=== PATIENT | female | born 1960 | race Caucasian/White ===

== ENCOUNTER → 2020-01-29 17:26 | Outpatient (CLI) | payer BC, SELFPAY ==
--- NOTE | ~2020-01-29 | MM_ITS ---
EXAMINATION: MM screening jorge l BI w ramana HISTORY: Screening mammogram, family history of breast cancer in her sister. TECHNIQUE: Craniocaudal and mediolateral oblique 3-D tomosynthesis images were obtained and synthetic 2-D images were generated. CAD analysis was submitted and interpreted. COMPARISON: 08/04/2006, 06/29/2005, 06/17/2005 BREAST PARENCHYMAL COMPOSITION: There are scattered areas of fibroglandular density. FINDINGS: RIGHT BREAST: There is no evidence of suspicious mass, calcification, or architectural distortion to suggest malignancy. There has been no significant interval change. LEFT BREAST: There is an ill-defined mass in the anterior/middle third of the upper outer quadrant of the breast with associated calcification. In addition, there are indeterminate calcifications in the posterior third of the lower-outer breast. IMPRESSION: 1. Left breast mass with associated calcifications and indeterminate left breast calcifications. 2. Additional mammographic views and possible breast ultrasound are recommended. BI-RADS Category 0: Incomplete: Needs additional imaging evaluation. Reviewed, dictated and finalized at location A. DELIVERY VEHICLE TEAM TECHNICIAN IMPRESSION: 1. Left breast mass with associated calcifications and indeterminate left breas t calcifications. 2. Additional mammographic views and possible breast ultrasound are recommended . BI-RADS Category 0: Incomplete: Needs additional imaging evaluation.
== END ==
PROVIDERS: PCP Family Medicine; Visit Provider Family Medicine
DX: Z12.31 Encounter for screening mammogram for malignant neoplasm of breast (principal); R92.8 Other abnormal and inconclusive findings on diagnostic imaging of breast
CPT/HCPCS: 77063; 77067

== ENCOUNTER → 2020-02-25 08:11 | Outpatient (CLI) | payer BC, SELFPAY ==
--- NOTE | ~2020-02-25 | MMUS_ITS ---
EXAMINATION: MM diagnostic mammo unilat LT, US breast LT limited HISTORY: Left breast mass and indeterminate left breast calcifications on screening mammogram TECHNIQUE: Additional 3-D tomosynthesis images of the left breast were performed and synthetic 2-D im ages were generated. Magnification views are also obtained. CAD analysis was submitted and interprete d. High resolution limited left breast ultrasound was performed. COMPARISON: 01/29/2020, 08/04/2006, 06/29/2005 FINDINGS: MAMMOGRAPHIC FINDINGS: There is an approximately 2.9 cm irregular high density mass with indistinct margins at the 1:00 loca tion in the upper outer quadrant of the breast with associated pleomorphic calcification. In addition , there are grouped punctate and fine pleomorphic calcifications in the posterior third of the lower- outer quadrant of the breast 7 cm from the nipple at the 4:00 location. ULTRASOUND: There is a 2.3 x 1.4 cm irregular hypoechoic mass with spiculated and indistinct margins, posterior a coustic shadowing, internal vascularity, and associated calcifications at the 12:00 location 5 cm fro m the nipple. IMPRESSION: 1. Suspicious left breast mass and grouped calcifications. 2. Ultrasound-guided biopsy of the mass and stereotactic biopsy of calcifications are recommended. BI-RADS category 5, highly suggestive of malignancy. Reviewed, dictated and finalized at location A. TENDER IMPRESSION: 1. Suspicious left breast mass and grouped calcifications. 2. Ultrasound-guided biopsy of the mass and stereotactic biopsy of calcificatio ns are recommended. BI-RADS category 5, highly suggestive of malignancy.
== END ==
PROVIDERS: PCP Family Medicine; Visit Provider Physician Assistant
DX: N63.25 Unspecified lump in the left breast, overlapping quadrants (principal); R92.1 Mammographic calcification found on diagnostic imaging of breast
CPT/HCPCS: 76642; 77065

== ENCOUNTER 2020-09-02 07:19 | Outpatient (CLI) | payer BC, SELFPAY ==
[2020-09-02 08:35] LABS: Hemoglobin A1C 6.3 % (<5.7)
== END 2020-09-02 07:20 | disposition home or self-care (01) ==
PROVIDERS: PCP Family Medicine; Visit Provider Physician Assistant
DX: E11.9 Type 2 diabetes mellitus without complications (principal)
CPT/HCPCS: 36415; 83036

== ENCOUNTER 2021-01-19 07:19 | Outpatient (CLI) | payer BC, SELFPAY ==
[2021-01-19 08:04] LABS: Alanine Aminotransferase 22 U/L (4-35); Albumin Level 4.7 g/dL (3.5-5.1); Alkaline Phosphatase 81 U/L (38-126); Anion Gap 9 mmol/L (8-16); Aspartate Amino Transferase 25 U/L (14-36); Bilirubin,Total 0.7 mg/dL (0.2-1.3); Blood Urea Nitrogen 18 mg/dL (7-17); Calcium 9.5 mg/dL (8.4-10.2); Carbon Dioxide 30 mmol/L (22-30); Chloride 100 mmol/L (98-107); Estimated Glomerular Filt Rate > 60; Glucose 112 mg/dL (65-110); Potassium 4.5 mmol/L (3.4-5.0); Sodium 139 mmol/L (137-145)
== END 2021-01-19 07:20 | disposition home or self-care (01) ==
PROVIDERS: PCP Family Medicine; Visit Provider Family Medicine
DX: E11.9 Type 2 diabetes mellitus without complications (principal); I10 Essential (primary) hypertension
CPT/HCPCS: 36415; 80053; 83036

== ENCOUNTER 2021-09-30 07:32 | Outpatient (CLI) | payer BC, SELFPAY ==
[2021-09-30 08:13] LABS: Anion Gap 10 mmol/L (8-16); Blood Urea Nitrogen 19 mg/dL (7-17); Calcium 9.2 mg/dL (8.4-10.2); Carbon Dioxide 27 mmol/L (22-30); Chloride 101 mmol/L (98-107); Cholesterol 253 mg/dL (0-200); Estimated Glomerular Filt Rate > 60; Glucose 120 mg/dL (65-110); HDL Direct 55 mg/dL; Potassium 4.1 mmol/L (3.4-5.0); Sodium 138 mmol/L (137-145); Triglycerides 165 mg/dL (<150)
[2021-09-30 08:24] LABS: LDL Cholesterol Direct 125 mg/dL
[2021-09-30 08:40] LABS: Free T4 Free Thyroxine 0.81 ng/mL (0.78-2.19)
[2021-09-30 10:52] LABS: Creatinine Urine 67.7 mg/dL
[2021-09-30 10:55] LABS: MALB Creatinine Ratio 28.7 mg/g (0-30); Microalbumin Urine Random 19.4 mg/L (0-16.7)
== END 2021-09-30 07:33 | disposition home or self-care (01) ==
PROVIDERS: PCP Family Medicine; Visit Provider Nurse Practitioner Family
DX: E11.9 Type 2 diabetes mellitus without complications (principal); E66.9 Obesity, unspecified; I10 Essential (primary) hypertension
CPT/HCPCS: 36415; 80048; 80061; 82043; 84439; 84443

== ENCOUNTER 2021-10-06 13:00 | Outpatient (RCR) | payer BC, SELFPAY ==
[2021-08-31 08:04] VITALS: BMI 40.5
[2021-08-31 08:09] VITALS: BMI 40.5
== END 2021-10-20 14:55 | disposition home or self-care (01) ==
LOC: ANHDMC 13:00
PROVIDERS: PCP Family Medicine; Visit Provider Internal Medicine Endocrinology, Diabetes & Metabolism
DX: E11.9 Type 2 diabetes mellitus without complications (principal); Z71.3 Dietary counseling and surveillance; Z71.89 Other specified counseling
CPT/HCPCS: 97802; G0108

== ENCOUNTER 2022-11-24 01:18 | Day surgery (SDC) | payer BC, SELFPAY ==
[2022-11-16 08:45] VITALS: BMI 40.7
[2022-11-24 07:24] VITALS: BP 119/77; PULSE 96; RESP 20; TEMP 36.4; O2SAT 100
[2022-11-24] MEDS: LACTATED RINGERS 1,000 ML 150 ML IV CONT (07:37)
[2022-11-24 07:43] LABS: Glucose Point of Care 119 mg/dl (65-105)
--- NOTE | 2022-11-24 07:50 | WPDANESEPPF ---
Anes - Initial Pre Proc Eval Procedure: Operation Date: 11/24/22 08:30 Proposed Procedures p Colonoscopy - Ho Wagoner MD Date/Time: 11/24/22 07:50 Surgeon: Ho Wagoner MD Pre Op Diagnosis: neoplasm screening Patient Data Age: 61 Gender: F Height: 1.7 m Weight: 115.4 kg Last Vital Signs Temp 36.4 C L 11/24/22 07:24 Pulse 96 11/24/22 07:24 Resp 20 11/24/22 07:24 BP 119/77 11/24/22 07:24 Pulse Ox 100 11/24/22 07:24 O2 Del Method Room Air 11/24/22 07:24 Allergies Allergy/AdvReac Type Severity Reaction Status Date / Time shellfish derived Allergy Severe Hives, Verified 11/24/22 07:21 throat swelling Penicillins Allergy Unknown Other Verified 11/24/22 07:21 Sulfa (Sulfonamide AdvReac Unknown Nausea Verified 11/24/22 07:21 Antibiotics) Home Medications Medication Instructions Recorded Confirmed Type blood sugar diagnostic (OneTouch #100 ea 07/05/20 11/22/22 Rx Ultra Blue Test Strip) blood-glucose meter (OneTouch #1 ea 07/05/20 11/22/22 Rx Ultra2 Meter kit) lancets 33 gauge (OneTouch Delica #100 ea 07/05/20 11/22/22 Rx Lancets) anastrozole 1 mg tablet 1 mg PO DAILY 01/05/21 11/22/22 History calcium carbonate 600 mg-vitamin 1 tablet PO DAILY 01/05/21 11/22/22 History D3 10 mcg (400 unit) tablet wjcblqlh-bbl-xhvwx ac 400 1 tablet PO DAILY 01/05/21 11/22/22 History mcg-calcium carb 500 mg-vit K1 20 mcg tablet (Women's 50 Plus Multivitamin) venlafaxine 37.5 mg 37.5 mg PO DAILY 01/05/21 11/22/22 History capsule,extended release 24 hr vitamin E (dl, acetate) 180 mg 400 unit PO DAILY 01/05/21 11/22/22 History (400 unit) capsule albuterol sulfate 90 mcg/actuation 1 puff inhalation Q4H PRN 04/04/21 11/22/22 Rx aerosol inhaler (Ventolin HFA) shortness of breath or wheezing #8.5 grams lisinopril 5 mg tablet See Rx Instructions .Route 05/11/22 11/22/22 Rx .COMPLEX #90 tabs rosuvastatin 20 mg tablet (Crestor) 20 mg PO DAILY 90 days #90 tabs 07/13/22 11/22/22 Rx fluticasone propionate 100 1 inh inhalation Q12H #60 ea 09/10/22 11/22/22 Rx mcg/actuation blister powder for inhalation (Flovent Diskus) metformin 1,000 mg tablet 1,000 mg PO BID #180 tabs 10/02/22 11/22/22 Rx montelukast 10 mg tablet 10 mg PO DAILY #90 tabs 10/02/22 11/22/22 Rx acetaminophen 500 mg capsule 500 mg PO Q6H PRN Pain 11/16/22 11/22/22 History diphenhydramine 25 1 tablet PO HS PRN Insomnia 11/16/22 11/22/22 History mg-acetaminophen 500 mg tablet (Tylenol PM Extra Strength) magnesium 1 tablet PO DAILY 11/16/22 11/22/22 History semaglutide 2 mg/dose (8 mg/3 mL) 2 mg (0.75 mL) subcut WEEKLY 90 11/22/22 11/22/22 Rx subcutaneous pen injector (Ozempic) days #9 mL Laboratory Tests 11/24/22 07:41 POC Capillary Glucose 119 H mg/dl (65-105) Patient hx anesthesia problems: none Family hx anesthesia problems: none Results Review: All pre-operative results and documents have been reviewed as part of the pre-operative evaluation. [facility] Past Medical History Medical History Actinic keratoses Asthma Body mass index (BMI) 35 or more (11/29/16) Breast cancer 2020 Essential (primary) hypertension Essential hypertension Fatty liver disease, nonalcoholic Mixed hyperlipidemia LAMONTE on CPAP Pre-diabetes Type 2 diabetes mellitus Vitamin D deficiency, unspecified Surgical History Surgical History H/O bilateral mastectomy 09/2020 History of breast reconstruction 02/2021 Family History Family History Sibling Asthma Diabetes mellitus Father Diabetes mellitus ALS (amyotrophic lateral sclerosis) Mother Heart disease Family history of kidney disease Other Family history of coronary artery disease Family history of malignant neoplasm
--- NOTE | 2022-11-24 08:11 | PM.HPGS ---
History of Present Illness History of Present Illness Consent: Risks, benefits, and alternatives have been discussed and questions answered. Patient agrees to proceed with procedure. Chief complaint: neoplasm screening Narrative: Zonia Dodge is a 61 year old female here for first screening colonoscopy Review of Systems Constitutional: Constitutional: Denies headache(s) and Denies weakness Eyes: Eyes: Denies blurry vision ENT: Reports Normal hearing present, Denies headache(s) and Denies neck pain Cardiovascular: Cardiovascular: Denies chest pain and Denies dyspnea Respiratory: Respiratory: Denies dyspnea Gastrointestinal: Gastrointestinal: Reports no additional gastrointestinal complaints Genitourinary: Genitourinary: Denies dysuria Musculoskeletal: Musculoskeletal: Denies neck pain Integumentary/Breasts: Skin/Breast: Denies dry skin Neurologic: Reports Normal hearing present, Denies headache(s) and Denies weakness Psychiatric: Psychiatric: Denies anxiety Endocrine: Endocrine: Denies change in body appearance Hematologic/Lymphatic: Hematologic/Lymphatic: Denies easy bleeding Allergic/Immunologic: Allergic/Immunologic: Denies urticaria [facility] Past Medical History Medical History (Updated 11/24/22 @ 08:12 by Ho Wagoner MD) Actinic keratoses Asthma Body mass index (BMI) 35 or more (11/29/16) Breast cancer 2020 Colon cancer screening Essential (primary) hypertension Essential hypertension Fatty liver disease, nonalcoholic Mixed hyperlipidemia LAMONTE on CPAP Pre-diabetes Type 2 diabetes mellitus Vitamin D deficiency, unspecified Surgical History Surgical History H/O bilateral mastectomy 09/2020 History of breast reconstruction 02/2021 Family History Family History Sibling Asthma Diabetes mellitus Father Diabetes mellitus ALS (amyotrophic lateral sclerosis) Mother Heart disease Family history of kidney disease Other Family history of coronary artery disease Family history of malignant neoplasm of breast in first degree relative Hypertension Social History Social History (Updated 11/22/22 @ 08:08 by Vinita Pinto [facility]) Smoking status: Never smoker Alcohol intake: current Alcohol use details: rarely Substance use: never Substance use type: does not use Lack of Transportation: No Lack of Food: Never True Current Housing: I Have Housing Concerned About Future Housing: No Difficulty Paying Gas/Electric Bills: No Difficulty Paying for Meds: No Currently Unemployed: No Education: Bachelor's Degree Difficulty w/ Childcare or Family Care: No Living arrangements: with family Spiritual care concerns: No Meds Home Medications and Allergies Home Medications Medication Instructions Recorded Confirmed Type blood sugar diagnostic (OneTouch #100 ea 07/05/20 11/22/22 Rx Ultra Blue Test Strip) blood-glucose meter (OneTouch #1 ea 07/05/20 11/22/22 Rx Ultra2 Meter kit) lancets 33 gauge (OneTouch Delica #100 ea 07/05/20 11/22/22 Rx Lancets) anastrozole 1 mg tablet 1 mg PO DAILY 01/05/21 11/22/22 History calcium carbonate 600 mg-vitamin 1 tablet PO DAILY 01/05/21 11/22/22 History D3 10 mcg (400 unit) tablet ujcqykll-jce-mwvyg ac 400 1 tablet PO DAILY 01/05/21 11/22/22 History mcg-calcium carb 500 mg-vit K1 20 mcg tablet (Women's 50 Plus Multivitamin) venlafaxine 37.5 mg 37.5 mg PO DAILY 01/05/21 11/22/22 History capsule,extended release 24 hr vitamin E (dl, acetate) 180 mg 400 unit PO DAILY 01/05/21 11/22/22 History (400 unit) capsule albuterol sulfate 90 mcg/actuation 1 puff inhalation Q4H PRN 04/04/21 11/22/22 Rx aerosol inhaler (Ventolin HFA) shortness of breath or wheezing #8.5 grams lisinopril 5 mg tablet See Rx Instructions .Route 05/11/22 11/22/22 Rx .COMPLEX #90
[2022-11-24 08:41] VITALS: BP 111/67; PULSE 108; RESP 21; O2SAT 97
[2022-11-24 08:51] VITALS: BP 120/74; PULSE 89; RESP 24; O2SAT 97
[2022-11-24 09:01] VITALS: BP 116/78; PULSE 86; RESP 16; O2SAT 97
== END 2022-11-24 09:03 | disposition home or self-care (01) ==
PROVIDERS: PCP Family Medicine; Visit Provider Internal Medicine Gastroenterology
PROC: 0DJD8ZZ Inspection of Lower Intestinal Tract, Via Natural or Artificial Opening Endoscopic (ICD-10-PCS; CPT 45378; principal; 2022-11-24 08:30)
DX: Z12.11 Encounter for screening for malignant neoplasm of colon (principal); D12.0 Benign neoplasm of cecum; K64.8 Other hemorrhoids; J45.909 Unspecified asthma, uncomplicated; E11.9 Type 2 diabetes mellitus without complications; I10 Essential (primary) hypertension; E78.5 Hyperlipidemia, unspecified; K75.81 Nonalcoholic steatohepatitis (NASH); E55.9 Vitamin D deficiency, unspecified; G47.33 Obstructive sleep apnea (adult) (pediatric); Z85.3 Personal history of malignant neoplasm of breast; Z79.811 Long term (current) use of aromatase inhibitors; Z79.51 Long term (current) use of inhaled steroids; Z79.84 Long term (current) use of oral hypoglycemic drugs; Z79.85 Long-term (current) use of injectable non-insulin antidiabetic drugs; E66.9 Obesity, unspecified; Z68.39 Body mass index [BMI] 39.0-39.9, adult
CPT/HCPCS: 45385; 82948; 88305; J2704; J7120

== ENCOUNTER 2022-11-28 07:33 | Outpatient (CLI) | payer BC, SELFPAY ==
[2022-11-28 08:23] LABS: Alanine Aminotransferase 25 U/L (6-35); Albumin Level 4.7 g/dL (3.5-5.1); Alkaline Phosphatase 93 U/L (38-126); Anion Gap 10 mmol/L (8-16); Aspartate Amino Transferase 26 U/L (14-36); Bilirubin,Total 1.1 mg/dL (0.2-1.3); Blood Urea Nitrogen 18 mg/dL (7-17); Carbon Dioxide 28 mmol/L (22-30); Chloride 100 mmol/L (98-107); Cholesterol 121 mg/dL (0-200); Estimated Glomerular Filt Rate > 60; Glucose 120 mg/dL (65-110); HDL Direct 54 mg/dL; Potassium 4.4 mmol/L (3.4-5.0); Sodium 138 mmol/L (137-145); Triglycerides 151 mg/dL (<150)
[2022-11-28 08:33] LABS: LDL Cholesterol Direct 44 mg/dL
[2022-11-28 08:47] LABS: Creatinine Urine 109.3 mg/dL
[2022-11-28 08:51] LABS: MALB Creatinine Ratio 113.7 mg/g (0-30); Microalbumin Urine Random 124.3 mg/L (0-16.7)
[2022-11-28 09:18] LABS: Free T4 Free Thyroxine 0.91 ng/mL (0.78-2.19)
[2022-11-29 12:39] LABS: Vitamin D 25 Hydroxy 40.5 ng/mL
== END 2022-11-28 07:34 | disposition home or self-care (01) ==
LOC: ANHLAB 07:35
PROVIDERS: PCP Family Medicine; Visit Provider Nurse Practitioner Family
DX: E11.9 Type 2 diabetes mellitus without complications (principal); E66.9 Obesity, unspecified; I10 Essential (primary) hypertension
CPT/HCPCS: 36415; 80053; 80061; 82043; 82306; 82607; 84439; 84443

== ENCOUNTER 2023-12-01 07:59 | Outpatient (CLI) | payer OTHER, SELFPAY ==
[2023-12-01 08:47] LABS: Alanine Aminotransferase 25 U/L (6-35); Albumin Level 4.7 g/dL (3.5-5.1); Alkaline Phosphatase 89 U/L (38-126); Anion Gap 10 mmol/L (4-12); Aspartate Amino Transferase 26 U/L (14-36); Blood Urea Nitrogen 20 mg/dL (7-17); Calcium 9.1 mg/dL (8.4-10.2); Carbon Dioxide 29 mmol/L (22-30); Chloride 99 mmol/L (98-107); Cholesterol 138 mg/dL (0-200); Estimated Glomerular Filt Rate > 60; Glucose 126 mg/dL (65-110); HDL Direct 69 mg/dL; Potassium 4.5 mmol/L (3.4-5.0); Sodium 138 mmol/L (137-145); Triglycerides 143 mg/dL (<150)
[2023-12-01 08:58] LABS: LDL Cholesterol Direct 46 mg/dL
[2023-12-01 09:37] LABS: Free T4 Free Thyroxine 0.69 ng/mL (0.78-2.19); Vitamin D 25 Hydroxy 46.8 ng/mL
[2023-12-01 09:38] LABS: Creatinine Urine 57.8 mg/dL
[2023-12-01 09:40] LABS: MALB Creatinine Ratio 23.7 mg/g (0-30); Microalbumin Urine Random 13.7 mg/L (0-16.7)
== END 2023-12-01 08:00 | disposition home or self-care (01) ==
LOC: ANHLAB 08:01
PROVIDERS: PCP Family Medicine; Visit Provider Nurse Practitioner Family
DX: E11.9 Type 2 diabetes mellitus without complications (principal); E66.9 Obesity, unspecified; I10 Essential (primary) hypertension
CPT/HCPCS: 36415; 80053; 80061; 82043; 82306; 82607; 84439; 84443

== ENCOUNTER 2024-06-25 07:44 | Outpatient (CLI) | payer OTHER, SELFPAY ==
--- NOTE | ~2024-06-25 | US_ITS ---
Renal-Bladder ultrasound Clinical History: Proteinuria Technique: Real-time sonographic imaging of the kidneys and urinary bladder was performed. Findings: The right kidney measures 12.3 cm in length and the left kidney measures 12.6 cm. There is no hydronephrosis or renal calculus identified. Renal cortical echogenicity is within normal limits. No renal mass lesion is identified. The urinary bladder is moderately distended at the time of this exam. No intraluminal echoes are iden tified. No abnormal wall thickening is seen. Impression: Unremarkable ultrasound of the kidneys and urinary bladder. Reviewed, dictated and finalized at location M. Impression: Unremarkable ultrasound of the kidneys and urinary bladder.
== END 2024-06-25 07:45 | disposition home or self-care (01) ==
LOC: MICIMG 07:44
PROVIDERS: PCP Family Medicine; Visit Provider Internal Medicine Nephrology
DX: R80.9 Proteinuria, unspecified (principal); E11.9 Type 2 diabetes mellitus without complications
CPT/HCPCS: 76775

== ENCOUNTER 2025-01-13 08:01 | Outpatient (CLI) | payer OTHER, SELFPAY ==
--- OUTSIDE RECORDS SUMMARY | 2025-01-13 08:11 | XMS_ITS | Encounter Summary ---
Author Organization [facility] Address [address] [place] [address] Phone Care Team Providers Care Merchandising Team Lead Name Role Phone Radha Gold MD Primary Care Provider [phone] Colt Calhoun MD Unavailable [phone] Reason for Visit * Reason Comments Medication Refill Encounter Details Date Type Department Care Team (Late st Contact Info) Description 06/24/2023 Refill [facility] [address] [place] [address] Colt Calhoun MD [address] [place] [address] Medication Refill Social History Tobacco Use Types Packs/Day Years Used Date Smoking Tobacco: Never Smokeless Tobacco: Never Alcohol Use Standard Drinks/Week Comments Yes 0 (1 standard drink = 0.6 oz pure alcohol) 1-2 beer or wine 1x per month or less PHQ-2 Answer Date Recorded Total Score - Questions 1-9 0 09/09 Education Answer Date Recorded What is the highest level of school you have completed or the highest degree you have received? 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 Please fill if appropriate. documented in this encounter Plan of Treatment Upcoming Encounters Date Type Department Care Team (Late st Contact Info) Description 04/01/2025 8:15 AM PROFESSIONAL HOUSING CONSULTANT [facility] [address] [phone] Colt Calhoun MD [address] [place] [phone] documented as of this encounter Visit Diagnoses Not on filedocumented in this encounter Additional Health Concerns Assessment Noted Time PHQ-9 Depression Total Score: 0 12/09/19 21 10:35 AM CDT documented as of this encounter Care Teams Merchandising Team Lead Relationship Specialty Start Date End Date Radha Gold MD [address] [place] [address] PCP - General Family Medicine 04/13/20 Colt Calhoun MD [address] [place] [phone] Consulting Physician Oncology 04/13/20 documented as of this encounter
--- OUTSIDE RECORDS SUMMARY | 2025-01-13 08:11 | XMS_ITS | Encounter Summary ---
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 Not on file Not on file documented as of this encounter Plan of Treatment Upcoming Encounters Date Type Department Care Team (Late st Contact Info) Description 04/01/2025 8:15 AM FLAKE OR SHRED ROLL OPERATOR Office Visit [facility] [address] [place] [address] Colt Calhoun MD [address] [place] [phone] documented as of this encounter Visit Diagnoses Not on filedocumented in this encounter Additional Health Concerns Assessment Noted Time PHQ-9 Depression Total Score: 0 12/09/19 10:35 AM CDT documented as of this encounter Care Teams Diamond Sizer And Grader Relationship Specialty Start Date End Date Radha Gold MD [address] [place] [address] PCP - General Family Medicine 04/13/20 Colt Calhoun MD [address] [place] [phone] Consulting Physician Oncology 04/13/20 documented as of this encounter
--- OUTSIDE RECORDS SUMMARY | 2025-01-13 08:11 | XMS_ITS | Encounter Summary ---
Author Organization [facility] Address [address] [place] [address] Phone Care Team Providers Care Sales Representative [employer] Name Role Phone Radha Gold MD Primary Care Provider [phone] Colt Calhoun MD Unavailable [phone] Reason for Visit * Reason Comments Medication Refill Encounter Details Date Type Department Care Team (Late st Contact Info) Description 02/24/2022 Refill [facility] [address] [place] [address] Colt Calhoun MD [address] [place] [address] Medication Refill Social History Tobacco [...] 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 Last filled 09/14/2021 #90 R-1 Please fill if appropriate WARE PROJECT MANAGER documented in this encounter Plan of Treatment Upcoming Encounters Date Type Department Care Team (Late st Contact Info) Description 04/01/2025 8:15 AM SOFTWARE PROJECT MANAGER [facility] [address] [phone] Colt Calhoun MD [address] [place] [phone] documented as of this encounter Visit Diagnoses Diagnosis Hot flashes related to aromatase inhibitor therapy Flushing documented in this encounter Additional Health Concerns Assessment Noted Time PHQ-9 Depression Total Score: 0 12/09/19 21 10:35 AM CDT documented as of this encounter Care Teams Sales Representative [employer] Relationship Specialty Start Date End Date Radha Gold MD [address] [place] [address] PCP - General Family Medicine 04/13/20 Colt Calhoun MD [address] [place] [phone] Consulting Physician Oncology 04/13/20 documented as of this encounter
--- OUTSIDE RECORDS SUMMARY | 2025-01-13 08:11 | XMS_ITS | Encounter Summary ---
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 Last filled 09/21/2021 #30 R-3 Please fill if appropriate documented in this encounter Plan of Treatment Upcoming Encounters Date Type Department Care Team (Late st Contact Info) Description 04/01/2025 8:15 AM ACCREDITATION COORDINATOR [facility] [address] [phone] Colt Calhoun MD [address] [place] [phone] documented as of this encounter Visit Diagnoses Diagnosis Ductal carcinoma in situ (DCIS) of left breast documented in this encounter Additional Health Concerns Assessment Noted Time PHQ-9 Depression Total Score: 0 12/09/19 10:35 AM CDT documented as of this encounter Care Teams Brake Mechanic Relationship Specialty Start Date End Date Radha Gold MD [address] [place] [address] PCP - General Family Medicine 04/13/20 Colt Calhoun MD [address] [place] [phone] Consulting Physician Oncology 04/13/20 documented as of this encounter
--- OUTSIDE RECORDS SUMMARY | 2025-01-13 08:11 | XMS_ITS | Encounter Summary ---
Author Organization [facility] Address [address] [place] [address] Phone Care Team Providers Care Licensed Prosthetist Name Role Phone Radha Gold MD Primary Care Provider [phone] Colt Calhoun MD Unavailable [phone] Reason for Visit * Reason Comments Medication Refill Encounter Details Date Type Department Care Team (Late st Contact Info) Description 07/16/2021 Refill [facility] [address] [place] [address] Colt Calhoun MD [address] [place] [address] Medication Refill Social History Tobacco Use Types Packs/Day Years Used Date Smoking Tobacco: Never Smokeless Tobacco: Never Alcohol Use Standard Drinks/Week Comments Yes 0 (1 standard drink = 0.6 oz pure alcohol) 1-2 beer or wine 1x per month or less PHQ-2 Answer Date Recorded Total Score - Questions 1-9 0 03/12 Education Answer Date Recorded What is the [...] 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 Please fill if appropriate documented in this encounter Plan of Treatment Upcoming Encounters Date Type Department Care Team (Late st Contact Info) Description 04/01/2025 8:15 AM HEDDLER TIER [facility] [address] [address] Colt Calhoun MD [address] [place] [phone] documented as of this encounter Visit Diagnoses Not on filedocumented in this encounter Additional Health Concerns Assessment Noted Time PHQ-9 Depression Total Score: 0 12/09/19 21 10:35 AM CDT documented as of this encounter Care Teams Licensed Prosthetist Relationship Specialty Start Date End Date Radha Gold MD [address] [place] [address] PCP - General Family Medicine 04/13/20 Colt Calhoun MD [address] [place] [phone] Consulting Physician Oncology 04/13/20 documented as of this encounter
--- OUTSIDE RECORDS SUMMARY | 2025-01-13 08:11 | XMS_ITS | Encounter Summary ---
Author Organization [facility] Address [address] [place] [address] Phone Care Team Providers Care Audio/Visual Operator Name Role Phone Radha Gold MD Primary Care Provider [phone] Colt Calhoun MD Unavailable [phone] Encounter Details Date Type Department Care Team (Latest Contact Info) Description 12/30/2024 Results Follow-Up [facility] [address] [place] [address] Belkis Fermin, SLOT SHIFT SUPERVISOR, SOLID WASTE MANAGER [address] [place] [address] SHERI BONE DENSITOMETRY AXIAL SKELETON Social History Tobacco Use Types Packs/Day Years [...] 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 documented in this encounter Miscellaneous Notes * Telephone Encounter - Mara Calderon RN - 12/30/2024 4:34 PM CDT Attempted to contact patient. LVM to return call to clinic. * Telephone Encounter - Mara Calderon RN - 12/30/2024 4:32 PM CDT ----- Message from Belkis Fermin APRN, CNP sent at 12/30/2024 8:42 AM CDT ----- Normal bone density. Continue Ca and Vit D ----- Message ----- From: Joe Sent: 12/26/2024 4:11 PM CDT To: Belkis Fermin APRN, CNP documented in this encounter Plan of Treatment Upcoming Encounters Date Type Department Care Team (Late st Contact Info) Description 04/01/2025 8:15 AM CLOTH PRINTER HELPER [facility] Visit [facility] [address] [address] Colt Calhoun MD [address] [place] [phone] documented as of this encounter Visit Diagnoses Not on filedocumented in this encounter Additional Health Concerns Assessment Noted Time PHQ-9 Depression Total Score: 0 12/09/19 10:35 AM CDT documented as of this encounter Care Teams Audio/Visual Operator Relationship Specialty Start Date End Date Radha Gold MD [address] [place] [address] PCP - General Family Medicine 04/13/20 Colt Calhoun MD [address] [place] [phone] Consulting Physician Oncology 04/13/20 documented as of this encounter
--- OUTSIDE RECORDS SUMMARY | 2025-01-13 08:11 | XMS_ITS | Encounter Summary ---
Author Organization [facility] Address [address] [place] [address] Phone Care Team Providers Care Ski Lift Mechanic Name Role Phone Radha Gold MD Primary Care Provider Colt Calhoun MD Unavailable [phone] Reason for Visit * Reason Comments Medication Refill Encounter Details Date Type Department Care Team (Late st Contact Info) Description 02/21/2022 Refill [facility] [address] [place] [address] Colt Calhoun MD [address] [place] [address] Medication Refill Social History Tobacco [...] 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 Not on file documented as of this encounter Miscellaneous Notes * Telephone Encounter - Milena Steen, RN - 02/21/2022 12:23 PM CST Refill request from pharmacy, please fill if appropriate ONAL ADMINISTRATIVE ASSISTANT documented in this encounter Plan of Treatment Upcoming Encounters Date Type Department Care Team (Late st Contact Info) Description 04/01/2025 8:15 AM REGIONAL ADMINISTRATIVE ASSISTANT Office Visit [facility] [address] [address] Colt Calhoun MD [address] [place] [phone] documented as of this encounter Visit Diagnoses Not on filedocumented in this encounter Additional Health Concerns Assessment Noted Time PHQ-9 Depression Total Score: 0 12/09/19 21 10:35 AM CDT documented as of this encounter Care Teams Ski Lift Mechanic Relationship Specialty Start Date End Date Radha Gold MD [address] [place] [address] PCP - General Family Medicine 04/13/20 Colt Calhoun MD [address] [place] [phone] Consulting Physician Oncology 04/13/20 documented as of this encounter
--- OUTSIDE RECORDS SUMMARY | 2025-01-13 08:11 | XMS_ITS | Encounter Summary ---
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 Next OV is 09/21/21. Refill if appropriate. documented in this encounter Plan of Treatment Upcoming Encounters Date Type Department Care Team (Late st Contact Info) Description 04/01/2025 8:15 AM OPTICS MANUFACTURING TECHNICIAN Office Visit [facility] [address] [address] Colt Calhoun MD [address] [place] [phone] documented as of this encounter Visit Diagnoses Diagnosis Hot flashes related to aromatase inhibitor therapy Flushing documented in this encounter Additional Health Concerns Assessment Noted Time PHQ-9 Depression Total Score: 0 12/09/19 10:35 AM CDT documented as of this encounter Care Teams Stock Turner Relationship Specialty Start Date End Date Radha Gold MD [address] [place] [address] PCP - General Family Medicine 04/13/20 Colt Calhoun MD [address] [place] [phone] Consulting Physician Oncology 04/13/20 documented as of this encounter
--- OUTSIDE RECORDS SUMMARY | 2025-01-13 08:11 | XMS_ITS | Clinical Summary ---
Author Organization [facility] Address [address] [place] [phone] Care Team Providers Care Mine Development Engineer Name Role Phone Radha Gold MD Primary Care Provider [phone] Allergies Active Allergy Reactions Criticality Noted Date Comments Mite Extract Other (See comments) Low 04/23/2020 Dust, mold, etc. Causes 'sinus/asthma' Other Hives High 04/23/2020 Mouth/throat itches as well Penicillins Hives,Urticaria Medium 10/05/2016 Shellfish Hives Medium 11/12/2021 Medications venlafaxine XR (EFFEXOR-XR) 37.5 mg 24 hr capsule Take 1 capsule (37.5 mg total) by mouth daily 2 Active SITagliptin-met formin (Janumet) 50-1,000 mg per tablet Take 1 tablet by mouth 2 (two) times a day 1 Active rosuvastatin (CRESTOR) 20 mg tablet Take 1 tablet (20 mg total) by mouth daily 2 Active montelukast (SINGULAIR) 10 mg tablet Take 1 tablet (10 mg total) by mouth daily 2 Active metFORMIN (GLUCOPHAGE) 1,000 mg tablet Take 1 tablet (1,000 mg total) by mouth 2 (two) times a day 2 Active magnesium oxide (MAG-OX) 250 mg (150.8 mg elemental) tablet Take 1 tablet (250 mg total) by mouth daily Active lisinopriL (PRINIVIL,ZESTR IL) 5 mg tablet Take 1 tablet (5 mg total) by mouth daily 2 Active ibuprofen (ADVIL,MOTRIN) 200 mg tab/cap Take by mouth A ctive calcium carbonate-vitam in D3 (CALTRATE 600 + D) 1500 mg (600 mg elemental) -400 units per tablet Take 1 tablet by mouth daily 2 Active anastrozole (ARIMIDEX) 1 mg tablet Take 1 tablet (1 mg total) by mouth daily 2 Active albuterol HFA (PROVENTIL HFA,VENTOLIN HFA,PROAIR HFA) 90 mcg/actuation inhaler INHALE 1 PUFF BY MOUTH EVERY 4 HOURS NEEDED FOR SHORTNESS OF BREATH OR WHEEZING 2 Active montelukast (Singulair) 10 mg tablet Take by mouth Active fluticasone propionate (Flovent Diskus) 100 mcg/actuation diskus inhaler INHALE 1 PUFF BY MOUTH EVERY 12 HOURS 2 Active Active Problems No known active problems Surgical History Surgery Date Site/Laterality Comments MASTECTOMY Bilateral BREAST RECONSTRUCTION Medical History Medical History Date Comments Asthma Hypertension Hyperlipidemia Diabetes mellitus Cancer (HCC) Social History Tobacco Use Types Packs/Day Years Used Date Smoking Tobacco: Never Tobacco Cessation:Counseling Given: Not Answered Personal Safety Answer Date Recorded Getting School Help Needed Not on file 03/11 Comments Unknown Sex and Gender Information Value Date Recorded Sex Assigned at Not on file Legal Sex Female 2:29 PM CDT Gender Identity Female 01/19/2021 9:48 AM POST SECONDARY PROFESSIONAL Sexual Orientation Straight 01/19/2021 9: 48 AM POST SECONDARY PROFESSIONAL Last Filed Vital Signs Vital Sign Reading Time Taken Comments Blood Pressure 104/76 08/05/2022 9:25 AM CDT Pulse 80 08/05/2022 9:25 AM CDT Temperature 36.6 C (97.8 F) 08/05/2022 9:25 AM CDT Respiratory Rate 18 08/05/2022 9:25 AM CDT Oxygen Saturation 97% 08/05/2022 9:25 AM CDT Inhaled Oxygen Concentration - - Weight 115.7 kg (255 lb) 08/05/2022 9:25 AM CDT Height 170.2 cm (5' 7) 08/05/2022 9:25 AM CDT Body Mass Index 39.94 08/05/2022 9:25 AM CDT Plan of Treatment Health Maintenance Due Date Last Done Comments Breast Cancer Screening-Mammogram 1962 Cervical Cancer Screening 1962 Colon Cancer Screening-Colonoscopy 1962 Depression Screening 1962 Hepatitis C Screening 1962 DTaP/Tdap/Td Vaccine (1 - Tdap) 1973 Hepatitis B Screening 1980 Regular Well Visit/Exam 18-64 1980 Pneumococcal vaccine <65 (1 of 2 - PCV) 1981 Zoster Vaccine (1 of 2) 1981 Covid-19 Vaccine (3 - Moderna risk series) 07/28/2020 06/30/2020, 06/02/2020 Influenza Vaccine (#1) 2024 12/23/2020 Insurance [employer] Care Teams Mine Development Engineer Relationship Specialty Start Date End Date Radha Gold MD PCP - General Family Medicine 06/17/20
--- OUTSIDE RECORDS SUMMARY | 2025-01-13 08:11 | XMS_ITS | Encounter Summary ---
Author Organization [facility] Address [address] [place] [address] Phone Care Team Providers Care Cupola Tender Name Role Phone Radha Gold MD Primary Care Provider [phone] Colt Calhoun MD Unavailable Reason for Visit * Reason Comments Medication Refill Encounter Details Date Type Department Care Team (Late st Contact Info) Description 03/02/2023 Refill [facility] [address] [place] [address] Colt Calhoun MD [address] [place] [address] Medication Refill Social History Tobacco [...] 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 Please fill if appropriate. CTURAL STEEL WORKER APPRENTICE documented in this encounter Plan of Treatment Upcoming Encounters Date Type Department Care Team (Late st Contact Info) Description 04/01/2025 8:15 AM STRUCTURAL STEEL WORKER APPRENTICE Office Visit [facility] [address] [address] Colt Calhoun MD [address] [place] [phone] documented as of this encounter Visit Diagnoses Diagnosis Ductal carcinoma in situ (DCIS) of left breast documented in this encounter Additional Health Concerns Assessment Noted Time PHQ-9 Depression Total Score: 0 12/09/19 10:35 AM CDT documented as of this encounter Care Teams Cupola Tender Relationship Specialty Start Date End Date Radha Gold MD [address] [place] [address] PCP - General Family Medicine 04/13/20 Colt Calhoun MD [address] [place] [phone] Consulting Physician Oncology 04/13/20 documented as of this encounter
--- OUTSIDE RECORDS SUMMARY | 2025-01-13 08:11 | XMS_ITS | Clinical Summary ---
Author Organization [facility] Address [address] [facility] [place] [address] Care Team Providers Care Ac/Dc Rewinder Name Role Phone Radha Gold MD Primary Care Provider [phone] Source Comments [facility],non-owned Affiliates and Associated Physician Practices is amultiple site organization consisting of ambulatory clinics and hospital sitesin [place], [place], [place] and [place]. This disclosure is being madepursuant to the Care Everywhere program and may not contain all information available regarding this patient. Last updated 17.[facility] Allergies Active Allergy Reactions Criticality Noted Date Comments Penicillins Urticaria Medium 10/05/2016 Medications * Be aware that medications may not be up to date on this document. Alwaysverify current medications with the patient. Montelukast Sodium (SINGULAIR PO) Activ e LISINOPRIL PO Active neomycin-polymy cornell-hc (CORTISPORIN) 3.5-51320-4 otic suspension Instill 4 Drops into right ear 4 times daily 10 mL 10/05/2016 Active Social History Tobacco Use Types Packs/Day Years Used Date Smoking Tobacco: Never Smokeless Tobacco: Never Comments Unknown Sex and Gender Information Value Date Recorded Sex Assigned at Not on file Legal Sex Female 3:05 PM CDT Gender Identity Not on file Sexual Orientation Not on file Last Filed Vital Signs Vital Sign Reading Time Taken Comments Blood Pressure 128/74 10/07/2016 11:50 AM CDT Pulse 77 10/07/2016 11:50 AM CDT Temperature 37.1 C (98.7 F) 10/07/2016 11:50 AM CDT Respiratory Rate - - Oxygen Saturation 97% 10/07/2016 11:50 AM CDT Inhaled Oxygen Concentration - - Weight 131.5 kg (290 lb) 10/07/2016 11:50 AM CDT Height 170.2 cm (5' 7) 10/07/2016 11:50 AM CDT Body Mass Index 45.42 10/07/2016 11:50 AM CDT Plan of Treatment Health Maintenance Due Date Last Done Comments COLOGUARD (AGES 45-75) - COL ON CA SCREENING 1962 COLON MONITORING 1962 COLONOSCOPY - COLON CA SCREENING 1962 CT COLONOGRAPHY - COLON CA SCREENING 1962 Colorectal Cancer Screening 1962 FIT - COLON CA SCREENING 1962 FLEX SIG - COLON CA SCREENING 1962 LIPID TESTING 1962 MAMMOGRAM 1962 HIV SCREENING 1977 HEPATITIS C SCREENING 12/11/1980 DTAP/TDAP/TD VACCINES (1 - Tdap) 1981 PAP SMEAR 12/17/1983 PNEUMOCOCCAL VACCINE 50+ (1 of 1 - PCV) 2012 ZOSTER VACCINE (1 of 2) 2012 SCREENING FOR DIABETES 10/05/2016 Respiratory Syncytial Virus (RSV) Vaccine Pt: or over 60 yrs (1 - Risk 60-74 years 1-dose series) 2022 DEPRESSION SCREENING 03/12/2024 COVID-19 VACCINE (1 - 2023-2 5 season) 2024 INFLUENZA VACCINE (#1) 2024 HEPATITIS B VACCINE Aged Out No longe r eligible based on patient's age to complete this topic HIB VACCINE Aged Out No longer eligi ble based on patient's age to complete this topic HPV VACCINE Aged Out No longer eligi ble based on patient's age to complete this topic MENINGOCOCCAL (Group B) VACC INE SHARED DECISION-MAKING Aged Out No longer eligibl e based on patient's age to complete this topic MENINGOCOCCAL GROUPS A/C/Y/W VACCINE Aged Out No longer eligible b ased on patient's age to complete this topic Insurance [facility] Care Teams Ac/Dc Rewinder Relationship Specialty Start Date End Date Radha Gold MD [address] [place] [address] PCP - General Family Medicine 10/05/16
--- OUTSIDE RECORDS SUMMARY | 2025-01-13 08:11 | XMS_ITS | Clinical Summary ---
Author Organization [facility] Address [address], [facility] [address] [place] [address] Phone Care Team Providers Care Back Facer Name Role Phone Radha Gold MD Primary Care Provider Colt Calhoun MD Unavailable [phone] Allergies Active Allergy Reactions Criticality Noted Date Comments Dust Mite Extract Other (see Comments) 04/23/19 21 Dust, mold, etc. Causes 'sinus/asthma' Penicillins Hives Medium 10/05/2016 Shellfish Allergy Hives High 04/23/2020 Mouth/throat itches as well Medications lisinopril (PRINIVIL, ZESTRIL) 5 MG Tablet Take 5 mg by mouth daily. 0 Active montelukast (SINGULAIR) 10 MG Tablet Take 10 mg by mouth daily. 0 Active ALBUTEROL SULFATE HFA IN take by inhalation. Active diphenhydrAMINE -APAP, sleep, (TYLENOL PM EXTRA STRENGTH PO) Take by mouth. Activ e Ibuprofen 200 MG Capsule Take by mouth. Acti ve Aspirin-Acetami nophen-Caffeine (EXCEDRIN PO) Take by mouth. A ctive VITAMIN E PO Take by mouth. Ac tive MAGNESIUM PO Take by mouth. Ac tive metFORMIN (GLUCOPHAGE) 1000 MG Tablet Take 1,000 mg by mouth 2 times daily. 2 Active rosuvastatin (CRESTOR) 20 MG Tablet Take 20 mg by mouth daily. 2 Active Flovent Diskus 100 MCG/ACT AEROSOL POWDER, BREATH ACTIVATED INHALE 1 PUFF BY MOUTH EVERY 12 HOURS 2 Active Calcium 600+D3 600-10 MG-MCG Tablet TAKE 1 TABLET BY MOUTH DAILY 120 Tablet 6 4 Active Jardiance 10 MG Tablet Take 10 mg by mouth daily. 4 Active Multiple Vitamin (MULTIVITAMIN PO) Take by mouth. Active anastrozole (ARIMIDEX) 1 MG TabletIndicatio ns:Ductal carcinoma in situ (DCIS) of left breast Take 1 Tablet by mouth daily 90 Tablet 3 5 Active albuterol 108 (90 Base) MCG/ACT Aerosol Solution INHALE 1 PUFF BY MOUTH EVERY 4 HOURS NEEDED FOR SHORTNESS OF BREATH OR WHEEZING 5 Active Mounjaro 5 MG/0.5ML Solution Auto-injector 5 Active venlafaxine (EFFEXOR-XR) 37.5 MG CAPSULE SR 24 HRIndications:D uctal carcinoma in situ (DCIS) of left breast,Hot flashes related to aromatase inhibitor therapy Take 1 Capsule by mouth daily. 90 Capsule 1 5 Active Active Problems Problem Noted Date Diagnosed Date Ductal carcinoma in situ (DCIS) of left breast 0 09/21/2021 Hot flashes related to aromatase inhibitor thera py 03/23/2021 Encounters Date Type Department Care Team Description 12/30/2024 Results Follow-Up [facility] [address] [address] Belkis Fermin, CUSTOMER ENGAGEMENT MANAGER, SENIOR PRODUCT MANAGER [facility] BONE DENSITOMETRY AXIAL SKELETON 12/26/2024 3:15 PM CDT Ancillary Procedure [facility] [address] [phone] Ductal carcinoma in situ (DCIS) of left breast; Screening for osteoporosis 12/26/2024 Travel 10/27/2024 Telephone [facility] [address] [phone] Colt Calhoun MD 10/27/2024 Refill [facility] [address] [address] Colt Calhoun MD Medication Refill from Last 3 Months Immunizations Immunization Administration Dates Next Due Covid-19, Mrna, Lnp-s, PF, 1 00 mcg/0.5 mL Dose (Moderna) 06/30/2020,06/02/2020 Influenza Vaccine, Quadrivalent, PF 12/14/2022,1 ,12/23/2020 TDAP Vaccine 12/29/2021 Family History Medical History Relation Name Comments Diabetes Brother 1 Diabetes Brother 2 Diabetes Sister 1 Cancer Sister 2 Cancer Sister 3 Cancer Sister 4 Relation Name Status Comments Brother 1 Alive Brother 2 Alive Sister 1 Sister 2 Alive breast Sister 3 Alive breast Sister 4 Alive breast Social History Tobacco Use Types Packs/Day Years Used Date Smoking Tobacco: Never Smokeless Tobacco: Never Tobacco Cessation:Counseling Given: Not Answered Alcohol Use Standard Drinks/Week Comments Yes 0 [...] 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 Not on file Last Filed Vital Signs Vital Sign Reading Time Taken Comments Blood Pressure 116/80 10/01/2024 1:33 PM CDT Pulse 96 10/01/2024 1:33 PM CDT Temperature 36.8 C (98.2 F) 10/01/2024 1:33 PM CDT Respiratory Rate 16 10/01/2024 1:33 PM CDT Oxygen Saturation 99% 10/01/2024 1:33 PM CDT Inhaled Oxygen Concentration - - Weight 120.7 kg (266 lb 1.6 oz) 10/01/2024 1:33 PM CDT Height 170.2 cm (5' 7) 10/01/2024 1:33 PM CDT Body Mass Index 41.68 10/01/2024 1:33 PM CDT Plan of Treatment Upcoming Encounters Date Type Department Care Team (Late st Contact Info) Description 04/01/2025 8:15 AM EMERGENCY ROOM PHYSICIAN ASSISTANT Office Visit [facility] [address] [address] Colt Calhoun MD [address] [place] [phone] Health Maintenance Due Date Last Done Comments Hepatitis C Virus (HCV) Screening 1962 Zoster Immunization (1 of 2) 1981 Pap Smear 12/17/1983 Cervical Cancer Screening (CCS) 1992 HPV/Cotest 1992 Cologuard 12/17/2007 Colonoscopy 12/17/2007 Colorectal Cancer Screening 12/17/2007 Immunochemical Fecal Occult Blood 12/17/2007 Pneumococcal Immunization (50+ years) (1 of 1 - PCV) 2012 Respiratory Syncytial Virus (RSV) Immunization (Adult) (1 - Risk 60-74 years 1-dose series) 2022 Influenza Immunization (#1) 11/10/202411/11, 12/14/2022, 12/22/2021, Additional history exists SARS-COV-2 Immunization ( season) 2024 12/29/2021, 01/21/2021, 01/21/2021, Additional history exists Td Immunization Every 10 Years (Adults With 1 Tdap) 12/30/2031 12/29/2021 Mammogram Unilateral Discontinued 04/20/2020, 04/05/19 Mammogram Discontinued 04/20/2020, 04/05/2020 DTaP/Tdap/Td Immunization Discontinued 12/29/2021 TdaP Immunization Discontinued 12/29/2021 Hepatitis B Immunization Aged Out No longer eligible based on patient's age to complete this topic Human Papillomavirus (HPV) Immunization Aged Out No longer eligible based on patient's age to complete this topic Meningococcal Immunization (ACWY) Aged Out No longer eligible based on patient's age to complete this topic Rotavirus Immunization Aged Out No lo nger eligible based on patient's age to complete this topic Procedures Procedure Name Priority Date/Time Associated Diagnosis Comments [facility] BONE DENSITOMETRY AXIAL SKELETON Routine 12/26/2024 3:41 PM CDT Ductal carcinoma in situ (DCIS) of left breast Screening for osteoporosis from Last 3 Months Results * [facility] BONE DENSITOMETRY AXIAL SKELETON (12/26/2024 3:41 PM CDT) Anatomical Region Laterality Modality BODY N/A Other Narrative 12/26/2024 4:08 PM CDT EXAMINATION: [facility] BONE DENSITOMETRY AXIAL SKELETON INDICATIONS: Intraductal carcinoma in situ of left breast. Postmenopausal, anastrozole use, calcium supplement use, vitamin-D use COMPARISON: This examination is compared to prior examination dated December 15, 2022. FINDINGS: Normal-appearing bone see of lumbar 2-lumbar 4 of the lumbar spine measuring 1.187 corresponding to 98 percent of that expected in a young adult with A T-score of -0.2 and a Z-score of -0.1. This has worsened when compared to prior examination of December 15, 2022. Normal-appearing bone mineral density of the left femoral neck measuring 1.166 corresponding to 112 percent of that expected in a young adult with a T-score of 0.9 and a Z-score of 1.5. Normal-appearing bone mineral density of the total left femoral bone mineral density value measuring 1.209 corresponding to 120 percent of that expected in a young adult with a T-score of 1.6 and a Z-score of 1.8. Normal-appearing bone mineral density of the right femoral neck measuring 1.123 corresponding to 108 percent of that expected in a young adult with a T-score of 0.6 and a Z-score of 1.2. Normal-appearing bone mineral density of the total right femoral bone mineral density value measuring 1.152 corresponding to 114 percent of that expected in a young adult with a T-score of 1.1 and a Z-score of 1.3. Normal-appearing bone mineral density of the total mean femoral bone mineral density value measuring 1.180 corresponding to 117 percent of that expected in a young adult with a T-score of 1.4 and a Z-score of 1.6. This has worsened when compared to prior examination dated December 15, 2022. With respect to the right hip: The FRAX 10 year probability of fracture for a major osteoporotic fracture is 5.2 percent. The FRAX 10 year fracture risk for a hip fracture is 0.1 percent. IMPRESSION Normal-appearing bone mineral density. The bone mineral density of the lumbar spine has worsened when compared to prior examination of December 15, 2022. Electronically signed by: CHU DIEHL MD Date of Signature: 12/26/2024 16:08:00 Procedure Note Chu Diehl MD - 12/26/2024 EXAMINATION: [facility] BONE DENSITOMETRY AXIAL SKELETON INDICATIONS: Intraductal carcinoma in situ of left breast. Postmenopausal, anastrozoleuse, calcium supplement use, vitamin-D use COMPARISON: This examination is compared to prior examination dated December 15, 2022. FINDINGS: Normal-appearing bone see of lumbar 2-lumbar 4 of the lumbar spinemeasuring 1.187 corresponding to 98 percent of that expected in a youngadult with A T-score of - 0.2 and a Z-score of -0.1. This has worsenedwhen compared to prior examination of December 15, 2022. Normal-appearing bone mineral density of the left femoral neck measuring1.166 corresponding to 112 percent of that expected in a young adult witha T-score of 0.9 and a Z-score of 1.5. Normal-appearing bone mineral density of the total left femoral bonemineral density value measuring 1.209 corresponding to 120 percent of thatexpected in a young adult with a T-score of 1.6 and a Z-score of 1.8. Normal-appearing bone mineral density of the right femoral neck measuring1.123 corresponding to 108 percent of that expected in a young adult witha T-score of 0.6 and a Z-score of 1.2. Normal-appearing bone mineral density of the total right femoral bonemineral density value measuring 1.152 corresponding to 114 percent of thatexpected in a young adult with a T-score of 1.1 and a Z-score of 1.3. Normal-appearing bone mineral density of the total mean femoral bonemineral density value measuring 1.180 corresponding to 117 percent of thatexpected in a young adult with a T-score of 1.4 and a Z-score of 1.6.This has worsened when compared to prior examination dated December. With respect to the right hip: The FRAX 10 year probability of fracture for a major osteoporotic fractureis 5.2 percent. The FRAX 10 year fracture risk for a hip fracture is 0.1 percent. IMPRESSION Normal-appearing bone mineral density. The bone mineral density of the lumbar spine has worsened when compared toprior examination of December 15, 2022. Electronically signed by: CHU DIEHL MD Date of Signature: 12/26/2024 16:08:00 Belkis Fermin APRN, SENIOR PRODUCT MANAGER IMG DEXA ORDERABLES F inal Result from Last 3 Months Insurance [facility] Care Teams Back Facer Relationship Specialty Start Date End Date Radha Gold MD [address] [place] [address] PCP - General Family Medicine 04/13/20 Colt Calhoun MD [address] [place] [phone] Consulting Physician Oncology 04/13/20
[2025-01-13 19:26] LABS: Hematocrit 47.7 % (37.0-47.0); Hemoglobin 14.3 g/dL (12.0-15.0); Mean Corpuscular HGB Conc 30.0 g/dl (32-36); Mean Corpuscular Hemoglobin 27.4 pg (26-34); Mean Corpuscular Volume 91.4 fl (80-100); Platelet Count Result 270 k/mm3 (150-375); Red Blood Count 5.22 M/mm3 (4.2-5.4); White Blood Count 7.1 K/mm3 (4.5-10.0)
[2025-01-13 19:35] LABS: Alanine Aminotransferase 40 U/L (6-35); Albumin Level 4.9 g/dL (3.5-5.1); Alkaline Phosphatase 91 U/L (38-126); Anion Gap 11 mmol/L (4-12); Aspartate Amino Transferase 78 U/L (14-36); Bilirubin,Total 1.2 mg/dL (0.2-1.3); Blood Urea Nitrogen 28 mg/dL (7-17); Calcium 9.8 mg/dL (8.4-10.2); Carbon Dioxide 27 mmol/L (22-30); Chloride 99 mmol/L (98-107); Cholesterol 138 mg/dL (0-200); Estimated Glomerular Filt Rate > 60; Glucose 117 mg/dL (65-110); HDL Direct 51 mg/dL; Potassium 4.8 mmol/L (3.4-5.0); Sodium 137 mmol/L (137-145); Total Protein 8.3 g/dL (6.3-8.2); Triglycerides 185 mg/dL (<150)
[2025-01-13 20:22] LABS: Thyroid Stimulating Hormone 2.230 uIU/mL (0.465-4.680)
== END 2025-01-13 08:02 | disposition home or self-care (01) ==
LOC: ANHBWCLAB 08:03
PROVIDERS: PCP Nurse Practitioner Adult Health; Visit Provider Nurse Practitioner Adult Health
DX: E55.9 Vitamin D deficiency, unspecified (principal); Z00.00 Encounter for general adult medical examination without abnormal findings; I10 Essential (primary) hypertension
CPT/HCPCS: 36415; 80053; 80061; 82306; 84443; 85027